=== PATIENT | male | born 1975 | race African-American/Black ===

== ENCOUNTER 2017-01-07 10:31 | Emergency (ER) | payer OTHER, BC ==
[~2017-01-07] VITALS: Ht 180.3 cm; Wt 85.0 kg
[~2017-01-07 10:31] MED LIST: NAPROSYN500 MG PO; ZITHROMAX100 MG/5 M PO
[2017-01-07] MEDS ORDERED: FLEXERIL PO (11:13)
[2017-01-07] MEDS ORDERED: TRAMADOL HYDROC50 MG PO (11:13)
[2017-01-07] MEDS ORDERED: MOTRIN800 MG PO (11:13)
[2017-01-07 11:21] VITALS: BP 135/83
[2017-01-07] MEDS ORDERED: ADVAIR DISK1 INH (11:22)
[2017-01-07] MEDS ORDERED: AZELASTINE0.1 % (11:23)
== END 2017-01-07 11:30 | disposition home or self-care (01) | DRG 552 ==
LOC: ED 10:31
DX: S33.9XXA Sprain of unspecified parts of lumbar spine and pelvis, initial encounter (principal); V49.40XA Driver injured in collision with unspecified motor vehicles in traffic accident, initial encounter

== ENCOUNTER 2017-03-12 17:54 | Emergency (ER) | payer OTHER, BC ==
[~2017-03-12] VITALS: Ht 180.3 cm; Wt 78.0 kg
[~2017-03-12 17:54] MED LIST changes: +ADVAIR DISK1 INH; +AZELASTINE0.1 %; +FLEXERIL PO; +MOTRIN800 MG PO; +TRAMADOL HYDROC50 MG PO
[2017-03-12] MEDS ORDERED: NASAL SPRAY NAB (18:16)
[2017-03-12] MEDS ORDERED: ULTRAM50 M1 PO (18:37)
[2017-03-12] MEDS ORDERED: ORPHENADRINE100 MG PO (18:37)
[2017-03-12 18:46] VITALS: BP 136/95
== END 2017-03-12 19:08 | disposition home or self-care (01) | DRG 552 ==
LOC: ED 17:54
DX: S16.1XXA Strain of muscle, fascia and tendon at neck level, initial encounter (principal); S29.012A Strain of muscle and tendon of back wall of thorax, initial encounter; V43.53XA Car driver injured in collision with pick-up truck in traffic accident, initial encounter

== ENCOUNTER 2017-03-16 12:15 | Emergency (ER) | payer BC ==
[~2017-03-16] VITALS: Ht 180.3 cm; Wt 76.8 kg
[~2017-03-16 12:15] MED LIST changes: +NASAL SPRAY NAB; +ORPHENADRINE100 MG PO; +ULTRAM50 M1 PO
[2017-03-16] MEDS ORDERED: CLEOCIN300 MG PO (15:54)
[2017-03-16 16:07] VITALS: BP 145/78
== END 2017-03-16 16:07 | disposition home or self-care (01) | DRG 603 ==
LOC: ED 12:15
PROC: 0H91XZZ Drainage of Face Skin, External Approach (ICD-10-PCS; principal; 2017-03-16)
DX: L02.01 Cutaneous abscess of face (principal)